=== PATIENT | male | born 1955 | race Caucasian/White ===

== ENCOUNTER 2018-06-23 05:31 | Observation (INO) | payer MEDICARE ==
[~2018-06-23] VITALS: Ht 182.9 cm; Wt 100.0 kg
[~2018-06-23 05:31] MED LIST: ARIP15TA3 PO; CARB200T2 PO; LORA-446 PO; METF500T PO
[2018-06-23 05:34] VITALS: BP 108/57
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
[2018-06-23 06:29] LABS: BASOPHILS # (AUTO) 0.04 x10^3/uL (0-0.1); BASOPHILS % (AUTO) 1 % (0-1); EOSINOPHILS % (AUTO) 1 % (1-7); LYMPHOCYTES # (AUTO) 1.22 x10^3/uL (1-3.4); LYMPHOCYTES % (AUTO) 17 % (22-44); MD NO; MEAN CORPUSCULAR HEMOGLOBIN 30.5 pg (27.5-34.5); MEAN CORPUSCULAR HGB CONC 33.7 g/dL (33.2-36.2); MEAN CORPUSCULAR VOLUME 90.4 fL (81-97); MEAN PLATELET VOLUME 9.2 fL (7.4-10.4); MONOCYTES # (AUTO) 0.42 x10^3/uL (0.2-0.8); MONOCYTES % (AUTO) 6 % (2-9); NEUTROPHILS # (AUTO) 5.29 x10^3/uL (1.8-6.8); NEUTROPHILS % (AUTO) 75 % (42-75); PLATELET COUNT 181 x10^3/uL (130-400); RED CELL DISTRIBUTION WIDTH 13.1 % (9.4-14.8)
[2018-06-23 06:40] LABS: ALBUMIN 3.6 g/dL (3.4-5.0); ANION GAP 11 mmol/L (5-15); CALCIUM 7.6 mg/dL (8.5-10.1); CHLORIDE 96 mmol/L (98-107); SALICYLATE LEVEL < 1.7 mg/dL (2.8-20.0)
[2018-06-23 06:41] LABS: CREATININE 0.79 mg/dL (0.7-1.3)
[2018-06-23 06:43] LABS: ACETAMINOPHEN < 2 mcg/mL (10-30)
--- NOTE | 2018-06-23 07:00 | NUR ---
REPORT GIVEN TO AMAURY SUMNER
--- NOTE | 2018-06-23 07:01 | NUR ---
Report from Sintia REBOLLEDO.
[2018-06-23] MEDS ORDERED: ARIPIPRAZOLE 15 MG TABLET PO ONE (08:00)
[2018-06-23] MEDS ORDERED: CARBAMAZEPINE XR 200 MG TABLET PO ONE (08:00)
[2018-06-23] MEDS ORDERED: metFORMIN 500 MG TABLET PO ONE (08:00)
[2018-06-23] MEDS ORDERED: ARIPIPRAZOLE 15 MG TABLET ONE (08:01)
[2018-06-23] MEDS ORDERED: CARBAMAZEPINE 200 MG TABLET ONE (08:01)
--- NOTE | 2018-06-23 08:28 | NUR ---
MEDICATIONS REQUESTED FROM PHARMACY.
--- NOTE | 2018-06-23 08:36 | NUR ---
0825: LATE ENTRY. PT SITTING UP IN BED EATING BREAKFAST. PT GIVEN PART OF HIS MEDICATIONS THE OTHERS REQUESTED FROM PHARMACY. PT PROVIDED URINE SAMPLE AND IT WAS SENT TO THE LAB.
--- NOTE | 2018-06-23 08:50 | NUR ---
REPORT GIVEN TO MYRON REBOLLEDO. HE STATED THAT HE WILL PRESENT THE CASE AND THEN THEY WILL CALL BACK.
--- NOTE | 2018-06-23 08:53 | NUR ---
PT MEDICATED PER ORDER.
[2018-06-23 09:03] LABS: AMPHETAMINE SCREEN, URINE Negative (Negative); BARBITURATE SCREEN, URINE Negative (Negative); BENZODIAZEPINE SCREEN, URINE Negative (Negative); CANNABINOID SCREEN, URINE Negative (Negative); COCAINE SCREEN, URINE Negative (Negative); METHADONE SCREEN, URINE Negative (Negative); OPIATE SCREEN, URINE Negative (Negative)
--- NOTE | 2018-06-23 09:49 | NUR ---
pt is resting in bed with eyes closed, respirations equal and non labored. NAD. sitter at bedside.
--- NOTE | 2018-06-23 10:24 | NUR ---
Hospitalist at bedside.
--- NOTE | 2018-06-23 11:28 | NUR ---
Pt taken to room 380 via wheelchair by tech. Pt is alert, oriented, with NAD. Pt has 3 bags with him.
[2018-06-23] MEDS ORDERED: ENOXAPARIN 40 MG/0.4 ML SQ SCH (11:30)
[2018-06-23] MEDS ORDERED: ACETAMINOPHEN 325 MG TABLET PO PRN (11:30)
[2018-06-23] MEDS ORDERED: METFORMIN HCL 500 MG PO SCH (17:00)
[2018-06-23] MEDS ORDERED: CARBAMAZEPINE 200 MG PO SCH (21:00)
[2018-06-24] MEDS ORDERED: ARIPIPRAZOLE 30 MG PO SCH (09:00)
== END 2018-06-23 11:30 ==
LOC: ED 06:49 → EDIP 07:57
PROVIDERS: ADMIT Internal Medicine; ATTEND Internal Medicine
DX: R45.851 Suicidal ideations (principal); D17.9 Benign lipomatous neoplasm, unspecified; E11.9 Type 2 diabetes mellitus without complications; E83.51 Hypocalcemia; E87.1 Hypo-osmolality and hyponatremia; F25.0 Schizoaffective disorder, bipolar type; M17.10 Unilateral primary osteoarthritis, unspecified knee; Z91.14 Patient's other noncompliance with medication regimen
CPT/HCPCS: 36415; 70450; 73564; 80048; 80307; 80329; 82040; 85025; 99284; G0378; G0480

== ENCOUNTER 2018-06-23 10:25 | Inpatient (IN) | payer MEDICARE ==
[~2018-06-23] VITALS: Ht 182.9 cm; Wt 101.4 kg
[2018-06-23] MEDS ORDERED: DOCUSATE 100 MG CAPSULE PO PRN ×2 (11:00→15:00)
[2018-06-23] MEDS ORDERED: BISACODYL 10 MG SUPP PR PRN (11:00)
[2018-06-23] MEDS ORDERED: ACETAMINOPHEN 325 MG TABLET PO PRN (11:00)
[2018-06-23] MEDS ORDERED: ONDANSETRON ODT 4 MG PO PRN ×2 (11:00→15:00)
[2018-06-23] MEDS ORDERED: POLYETHYLENE GLYCOL 17 GM PACKET PO PRN (11:00)
[2018-06-23] MEDS ORDERED: PLEASE ENTER HEIGHT AND WEIGHT MC SCH (12:00)
[2018-06-23 12:08] VITALS: BP 121/69
[2018-06-23 13:32] LABS: BASOPHILS # (AUTO) 0.02 x10^3/uL (0-0.1); BASOPHILS % (AUTO) 0 % (0-1); EOSINOPHILS # (AUTO) 0.16 x10^3/uL (0-0.4); EOSINOPHILS % (AUTO) 2 % (1-7); LYMPHOCYTES # (AUTO) 1.21 x10^3/uL (1-3.4); LYMPHOCYTES % (AUTO) 15 % (22-44); MD NO; MEAN CORPUSCULAR HEMOGLOBIN 30.8 pg (27.5-34.5); MEAN CORPUSCULAR VOLUME 90.4 fL (81-97); MEAN PLATELET VOLUME 9.3 fL (7.4-10.4); MONOCYTES # (AUTO) 0.58 x10^3/uL (0.2-0.8); MONOCYTES % (AUTO) 7 % (2-9); NEUTROPHILS # (AUTO) 6.08 x10^3/uL (1.8-6.8); NEUTROPHILS % (AUTO) 75 % (42-75); PLATELET COUNT 182 x10^3/uL (130-400); RED BLOOD COUNT 4.67 x10^6/uL (4.38-5.82); RED CELL DISTRIBUTION WIDTH 12.7 % (9.4-14.8)
[2018-06-23 14:08] LABS: CHOL/HDL RATIO 3.1; FOLATE LEVEL 14.6 ng/mL (3.1-17.5); FREE T4 (FREE THYROXINE) 1.3 ng/dL (0.76-1.46); LDL/HDL RATIO 0.9 (0.5-3.0); THYROID STIMULATING HORMONE 0.565 mIU/L (0.358-3.740)
[2018-06-23] MEDS: ENOXAPARIN 40 MG/0.4 ML SQ SCH (14:42)
[2018-06-23] MEDS ORDERED: IBUPROFEN 600 MG TABLET PO PRN (15:00)
[2018-06-23 15:31] LABS: MICROSCOPIC NOT IND
[2018-06-23 15:33] LABS: CULTURE INDICATED? NO
[2018-06-23] MEDS ORDERED: metFORMIN 500 MG TABLET PO SCH (17:00)
[2018-06-23] MEDS: metFORMIN 500 MG TABLET PO SCH (17:22)
[2018-06-23 17:57] VITALS: BP 121/69
[2018-06-23 19:28] VITALS: BP 116/70
[2018-06-23] MEDS: TRIHEXYPHENIDYL 2MG TABLET PO SCH (19:50)
[2018-06-23] MEDS: CARBAMAZEPINE 200 MG TABLET PO SCH (19:51)
[2018-06-23] MEDS ORDERED: CARBAMAZEPINE XR 200 MG TABLET PO SCH (21:00)
[2018-06-24 04:50] LABS: ANION GAP 4 mmol/L (5-15); CALCIUM 8.5 mg/dL (8.5-10.1); CHLORIDE 103 mmol/L (98-107)
[2018-06-24 04:54] LABS: ALANINE AMINOTRANSFERASE 45 U/L (12-78); ALKALINE PHOSPHATASE 74 U/L (45-117); BILIRUBIN,TOTAL 0.8 mg/dL (0.2-1.0); CREATININE 0.88 mg/dL (0.7-1.3); TOTAL PROTEIN 7.4 g/dL (6.4-8.2)
[2018-06-24 05:17] LABS: HEMOGLOBIN A1C 5.8 % (4.2-6.3)
[2018-06-24 07:44] VITALS: BP 149/76
[2018-06-24] MEDS: VITAMIN E 400 UNITS CAPSULE PO SCH (08:48)
[2018-06-24] MEDS: metFORMIN 500 MG TABLET PO SCH ×2 (08:48→16:41)
[2018-06-24] MEDS: ARIPIPRAZOLE 10 MG TABLET PO SCH (08:49)
[2018-06-24] MEDS: CARBAMAZEPINE 200 MG TABLET PO SCH ×2 (08:49→19:54)
[2018-06-24] MEDS: TRIHEXYPHENIDYL 2MG TABLET PO SCH ×2 (08:49→19:54)
[2018-06-24] MEDS: SENNA/DOCUSATE TABLET PO SCH (08:52)
[2018-06-24] MEDS ORDERED: ARIPIPRAZOLE 15 MG TABLET PO SCH (09:00)
[2018-06-24] MEDS: ENOXAPARIN 40 MG/0.4 ML SQ SCH (12:00)
[2018-06-24 20:02] VITALS: BP 143/82
[2018-06-25 07:23] VITALS: BP 156/89
[2018-06-25] MEDS: TRIHEXYPHENIDYL 2MG TABLET PO SCH ×2 (08:25→20:59)
[2018-06-25] MEDS: CARBAMAZEPINE 200 MG TABLET PO SCH ×2 (08:25→20:58)
[2018-06-25] MEDS: metFORMIN 500 MG TABLET PO SCH ×2 (08:26→17:06)
[2018-06-25] MEDS: VITAMIN E 400 UNITS CAPSULE PO SCH (08:26)
[2018-06-25] MEDS: ARIPIPRAZOLE 10 MG TABLET PO SCH (08:26)
[2018-06-25] MEDS: SENNA/DOCUSATE TABLET PO SCH (08:27)
[2018-06-25] MEDS: ENOXAPARIN 40 MG/0.4 ML SQ SCH (12:00)
[2018-06-25 21:35] VITALS: BP 152/86
[2018-06-26 07:27] VITALS: BP 155/88
[2018-06-26] MEDS: metFORMIN 500 MG TABLET PO SCH ×2 (08:16→16:47)
[2018-06-26] MEDS: SENNA/DOCUSATE TABLET PO SCH (08:16)
[2018-06-26] MEDS: ARIPIPRAZOLE 10 MG TABLET PO SCH (08:16)
[2018-06-26] MEDS: VITAMIN E 400 UNITS CAPSULE PO SCH (08:16)
[2018-06-26] MEDS: CARBAMAZEPINE 200 MG TABLET PO SCH ×3 (08:16→20:51)
[2018-06-26] MEDS: TRIHEXYPHENIDYL 2MG TABLET PO SCH ×2 (08:17→20:44)
[2018-06-26] MEDS: ENOXAPARIN 40 MG/0.4 ML SQ SCH (12:30)
[2018-06-26 19:25] VITALS: BP 118/56
[2018-06-27] MEDS: ACETAMINOPHEN 325 MG TABLET PO PRN (01:22)
[2018-06-27 08:12] VITALS: BP 162/81
[2018-06-27] MEDS: VITAMIN E 400 UNITS CAPSULE PO SCH (08:31)
[2018-06-27] MEDS: SENNA/DOCUSATE TABLET PO SCH (08:32)
[2018-06-27] MEDS: TRIHEXYPHENIDYL 2MG TABLET PO SCH ×2 (08:32→20:06)
[2018-06-27] MEDS: ARIPIPRAZOLE 10 MG TABLET PO SCH (08:32)
[2018-06-27] MEDS: metFORMIN 500 MG TABLET PO SCH ×2 (08:32→17:17)
[2018-06-27] MEDS: ENOXAPARIN 40 MG/0.4 ML SQ SCH (12:00)
[2018-06-27 20:50] VITALS: BP 144/75
[2018-06-28 07:25] VITALS: BP 148/74
[2018-06-28] MEDS: metFORMIN 500 MG TABLET PO SCH ×2 (08:22→17:32)
[2018-06-28] MEDS: TRIHEXYPHENIDYL 2MG TABLET PO SCH ×2 (08:23→20:15)
[2018-06-28] MEDS: VITAMIN E 400 UNITS CAPSULE PO SCH (08:23)
[2018-06-28] MEDS: SENNA/DOCUSATE TABLET PO SCH (08:23)
[2018-06-28] MEDS: ARIPIPRAZOLE 15 MG TABLET PO SCH (08:23)
[2018-06-28] MEDS: ENOXAPARIN 40 MG/0.4 ML SQ SCH (12:00)
[2018-06-28 19:15] VITALS: BP 109/71
[2018-06-29 07:13] VITALS: BP 146/84
[2018-06-29] MEDS: TRIHEXYPHENIDYL 2MG TABLET PO SCH ×2 (08:27→20:19)
[2018-06-29] MEDS: metFORMIN 500 MG TABLET PO SCH ×2 (08:27→16:57)
[2018-06-29] MEDS: VITAMIN E 400 UNITS CAPSULE PO SCH (08:27)
[2018-06-29] MEDS: ARIPIPRAZOLE 15 MG TABLET PO SCH (08:27)
[2018-06-29] MEDS: SENNA/DOCUSATE TABLET PO SCH (08:28)
[2018-06-29] MEDS: ENOXAPARIN 40 MG/0.4 ML SQ SCH (12:08)
[2018-06-29] MEDS ORDERED: VITA400C9 PO (14:55)
[2018-06-29] MEDS ORDERED: ARIP15TA3 PO (14:55)
[2018-06-29] MEDS ORDERED: TRIH2TAB3 PO (14:55)
[2018-06-29] MEDS ORDERED: METF500T PO (14:55)
[2018-06-29 19:26] VITALS: BP 111/70
[2018-06-30] MEDS: ACETAMINOPHEN 325 MG TABLET PO PRN (06:36)
[2018-06-30 07:10] VITALS: BP 134/84
[2018-06-30] MEDS: metFORMIN 500 MG TABLET PO SCH (08:41)
[2018-06-30] MEDS: SENNA/DOCUSATE TABLET PO SCH (08:41)
[2018-06-30] MEDS: TRIHEXYPHENIDYL 2MG TABLET PO SCH (08:41)
[2018-06-30] MEDS: VITAMIN E 400 UNITS CAPSULE PO SCH (08:41)
[2018-06-30] MEDS: ARIPIPRAZOLE 15 MG TABLET PO SCH (08:42)
== END 2018-06-30 11:05 | disposition home or self-care (01) | DRG 885 ==
LOC: 3E 11:43
PROVIDERS: ADMIT Psychiatry & Neurology Psychosomatic Medicine; ATTEND Psychiatry & Neurology Psychosomatic Medicine
DX: F25.0 Schizoaffective disorder, bipolar type (principal); R45.851 Suicidal ideations; E11.9 Type 2 diabetes mellitus without complications; I10 Essential (primary) hypertension; W18.30XA Fall on same level, unspecified, initial encounter; Z79.84 Long term (current) use of oral hypoglycemic drugs; Z79.899 Other long term (current) drug therapy; Z82.5 Family history of asthma and other chronic lower respiratory diseases; Z91.19 Patient's noncompliance with other medical treatment and regimen
CPT/HCPCS: 36415; 80053; 80061; 81003; 82607; 82746; 83036; 84439; 84443; 85025; 86592; 93005; J1650

== ENCOUNTER 2018-07-19 17:29 | Emergency (ER) | payer MEDICARE ==
[~2018-07-19] VITALS: Ht 182.9 cm; Wt 110.0 kg
[~2018-07-19 17:29] MED LIST changes: +TRIH2TAB3 PO; +VITA400C9 PO
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
[2018-07-19] MEDS ORDERED: ARIPIPRAZOLE 15 MG TABLET ONE (17:55)
--- NOTE | 2018-07-19 18:20 | NUR ---
Provided with meal tray. No other needs.
[2018-07-19 18:23] LABS: BASOPHILS % (AUTO) 0 % (0-1); EOSINOPHILS # (AUTO) 0.04 x10^3/uL (0-0.4); EOSINOPHILS % (AUTO) 0 % (1-7); LYMPHOCYTES % (AUTO) 11 % (22-44); MD NO; MEAN CORPUSCULAR HGB CONC 34.3 g/dL (33.2-36.2); MEAN CORPUSCULAR VOLUME 90.5 fL (81-97); MEAN PLATELET VOLUME 10.2 fL (7.4-10.4); MONOCYTES # (AUTO) 0.13 x10^3/uL (0.2-0.8); MONOCYTES % (AUTO) 1 % (2-9); NEUTROPHILS # (AUTO) 8.56 x10^3/uL (1.8-6.8); NEUTROPHILS % (AUTO) 87 % (42-75); PLATELET COUNT 168 x10^3/uL (130-400); RED BLOOD COUNT 4.92 x10^6/uL (4.38-5.82); RED CELL DISTRIBUTION WIDTH 13.2 % (9.4-14.8)
[2018-07-19 18:27] LABS: AMPHETAMINE SCREEN, URINE Negative (Negative); BARBITURATE SCREEN, URINE Negative (Negative); BENZODIAZEPINE SCREEN, URINE Negative (Negative); CANNABINOID SCREEN, URINE Negative (Negative); COCAINE SCREEN, URINE Negative (Negative); METHADONE SCREEN, URINE Negative (Negative); OPIATE SCREEN, URINE Negative (Negative)
[2018-07-19 18:30] LABS: ALBUMIN 4.2 g/dL (3.4-5.0); ANION GAP 8 mmol/L (5-15); CALCIUM 8.9 mg/dL (8.5-10.1); CHLORIDE 106 mmol/L (98-107); CREATININE 1.02 mg/dL (0.7-1.3)
[2018-07-19 18:31] LABS: ACETAMINOPHEN < 2 mcg/mL (10-30); SALICYLATE LEVEL < 1.7 mg/dL (2.8-20.0)
--- NOTE | 2018-07-19 18:34 | NUR ---
SPOKE TO [facility] INITIATED.
--- NOTE | 2018-07-19 19:59 | NUR ---
SPoke with soc a this time. vss. Pt resting in bed.
--- NOTE | 2018-07-19 20:18 | NUR ---
Patient is resting comfortably in bed. CAP REFILL <3 SECONDS. EQUAL CHEST RISE AND NADN. SITTER OUTSIDE ROOM FOR CONTINOUS MONITORING.
[2018-07-19 20:48] VITALS: BP 115/68
--- NOTE | 2018-07-19 20:55 | NUR ---
PT PLACED ON HOSPITAL BED. PT RESTING NO OTHER NEEDS AT THIS TIME.
--- NOTE | 2018-07-19 21:45 | NUR ---
ERICK RN: PACKET FAXED TO [facility], [facility], [facility], [facility]
--- NOTE | 2018-07-19 22:04 | NUR ---
PT TO BE ADMITTED TO 3E
[2018-07-20] MEDS ORDERED: ARIPIPRAZOLE 15 MG TABLET PO SCH (09:00)
== END 2018-07-19 22:04 ==
LOC: ED 18:14 → UNDOADMOB 20:25 → EDIP 20:25
DX: R45.851 Suicidal ideations (principal); E11.9 Type 2 diabetes mellitus without complications; F20.81 Schizophreniform disorder
CPT/HCPCS: 36415; 80048; 80307; 80329; 82040; 85025; 99284; G0480

== ENCOUNTER 2018-08-03 03:32 | Emergency (ER) | payer MEDICARE ==
[~2018-08-03] VITALS: Ht 185.4 cm; Wt 104.3 kg
[~2018-08-03 03:32] MED LIST changes: +GABA300C10 PO; +OLAN10TA9 PO
--- NOTE | 2018-08-03 05:02 | NUR ---
PT HERE FOR FOOT PAIN BECAUSE HE WALKED TOO MUCH YESTERDAY. PTAMBULATED TO BATHROOM. PT TO BE EVALUATED BY .
[2018-08-03 06:13] VITALS: BP 139/66
--- NOTE | 2018-08-03 06:15 | NUR ---
PT RESTING. WAITING FOR RESULTS. PT UPDATED ON POC. VSS. CALL LIGHT IN REACH
[2018-08-03 06:16] LABS: BASOPHILS # (AUTO) 0.02 x10^3/uL (0-0.1); BASOPHILS % (AUTO) 0 % (0-1); EOSINOPHILS # (AUTO) 0.16 x10^3/uL (0-0.4); EOSINOPHILS % (AUTO) 2 % (1-7); LYMPHOCYTES # (AUTO) 0.98 x10^3/uL (1-3.4); LYMPHOCYTES % (AUTO) 13 % (22-44); MD NO; MEAN CORPUSCULAR HEMOGLOBIN 30.5 pg (27.5-34.5); MEAN CORPUSCULAR VOLUME 89.8 fL (81-97); MEAN PLATELET VOLUME 9.5 fL (7.4-10.4); MONOCYTES # (AUTO) 0.48 x10^3/uL (0.2-0.8); MONOCYTES % (AUTO) 6 % (2-9); NEUTROPHILS # (AUTO) 5.86 x10^3/uL (1.8-6.8); NEUTROPHILS % (AUTO) 78 % (42-75); PLATELET COUNT 178 x10^3/uL (130-400); RED BLOOD COUNT 4.68 x10^6/uL (4.38-5.82); RED CELL DISTRIBUTION WIDTH 13.5 % (9.4-14.8)
[2018-08-03 06:29] LABS: ALANINE AMINOTRANSFERASE 52 U/L (12-78); ALBUMIN 4.2 g/dL (3.4-5.0); ANION GAP 6 mmol/L (5-15); CALCIUM 8.8 mg/dL (8.5-10.1); CHLORIDE 103 mmol/L (98-107)
[2018-08-03 06:33] LABS: ALKALINE PHOSPHATASE 61 U/L (45-117); BILIRUBIN,TOTAL 0.9 mg/dL (0.2-1.0); TOTAL PROTEIN 7.4 g/dL (6.4-8.2)
--- NOTE | 2018-08-03 06:50 | NUR ---
RECEIVED REPORT FROM MARTHA REBOLLEDO, PLAN OF CARE DISCUSSED
--- NOTE | 2018-08-03 07:10 | NUR ---
GAVE PT WATER, STATES UNABLE TO PROVIDE UA.
[2018-08-03 07:59] LABS: MICROSCOPIC NOT IND
[2018-08-03 08:02] LABS: CULTURE INDICATED? NO
== END 2018-08-03 08:41 | disposition home or self-care (01) ==
LOC: ED 05:35
DX: I87.2 Venous insufficiency (chronic) (peripheral) (principal); R60.0 Localized edema; E11.9 Type 2 diabetes mellitus without complications
CPT/HCPCS: 36415; 71045; 80053; 81003; 83880; 85025; 93005; 99284